=== PATIENT | female | born 1945 | race Caucasian/White ===

== ENCOUNTER → 2016-10-27 | Outpatient (CLI) | payer MEDICARE, BC ==
--- NOTE | 2016-10-27 14:37 | CR ---
EXAMINATION: Right knee HISTORY: Osteoarthritis COMPARISON: 10/29/2015 TECHNIQUE: 3 views FINDINGS/IMPRESSION: Right total knee hardware is demonstrated in stable position and alignment. No acute osseous abnormalities noted. No joint effusion demonstrated.
== END | disposition home or self-care (01) ==
LOC: MW.CHORTHO 08:03
PROVIDERS: ATTEND Orthopaedic Surgery
DX: M17.11 Unilateral primary osteoarthritis, right knee (principal); Z96.651 Presence of right artificial knee joint
CPT/HCPCS: 73562; G0463

== ENCOUNTER 2023-03-16 08:38 | Day surgery (SDC) | payer MEDICARE ==
[~2023-03-16 08:38] MED LIST: Albuterol 0.083% 2.5 MG/3 ML Neb Soln NEB PRN; Bupivacaine 0.5% 30 ML SDV ONE; Bupivacaine 25%/EPINEPHrine/PF 0 ML ONE; Dexmedetomidine 200 MCG/2 ML SDV ONE; HYDROmorphone 1 MG/ML Syringe IVPUSH PRN; Lactated Ringers 1,000 ML IV SCH; Lidocaine 2% 5 ML SDV ONE; Metoclopramide 10 MG/2 ML SDV IVPUSH PRN; Morphine 2 MG/ML SYRINGE IVPUSH PRN; Naloxone 0.4 MG/ML SDV IVPUSH PRN; Ondansetron 4 MG/2 ML SDV IVPUSH PRN; Ondansetron 4 MG/2 ML SDV ONE; Propofol 200 MG/20 ML SDV ONE; Rocuronium Bromide 50 MG/5 ML Syringe ONE; Ropivacaine 0.5% 5 MG/ML 30 ML SDV ONE; Sodium Chloride 0.9% 10 ML Syringe FLUSH PRN; Sodium Chloride 0.9% 2.5 ML Syringe FLUSH PRN; Sodium Chloride 0.9% 20 ML SDV IV PRN; Water For Injection, Sterile 20 ML ONE; ceFAZolin 2 GM in Sodium Chloride 0.9% 50 ML IV ONE; droPERidol 5 MG/2 ML SDV IVPUSH PRN; fentaNYL 100 MCG/2 ML SDV ONE; fentaNYL 50 MCG/ML SDV IVPUSH PRN
[2023-03-16] MEDS ORDERED: propofoL 50 ML ONE (10:32)
[2023-03-16] MEDS ORDERED: ceFAZolin 2 GM Vial ONE (10:38)
[2023-03-16] MEDS ORDERED: Sugammadex Sodium 200 MG/2 ML VIAL ONE (10:50)
[2023-03-16] MEDS ORDERED: Magnesium Sulfate (4.06 MEQ/ML) 5 GM/10 ML SDV ONE (10:51)
[2023-03-16] MEDS ORDERED: Rocuronium Bromide 50 MG/5 ML Syringe ONE (11:08)
[2023-03-16] MEDS ORDERED: Ketorolac 30 MG/ML SDV ONE (11:21)
[2023-03-16] MEDS ORDERED: Acetaminophen/oxyCODONE 325-5 MG Tab PO ONE (13:02)
[2023-03-16] MEDS ORDERED: Acetaminophen/oxyCODONE 325-5 MG Tab ONE (13:05)
[2023-03-16 14:41] VITALS: BP 119/68; PULSE 53
== END 2023-03-16 14:21 | disposition home or self-care (01) ==
LOC: MW.SDS 08:38
PROVIDERS: ATTEND Surgery
DX: K80.10 Calculus of gallbladder with chronic cholecystitis without obstruction (principal); K82.8 Other specified diseases of gallbladder; K42.9 Umbilical hernia without obstruction or gangrene; E78.00 Pure hypercholesterolemia, unspecified; J45.909 Unspecified asthma, uncomplicated; Z88.5 Allergy status to narcotic agent; Z88.8 Allergy status to other drugs, medicaments and biological substances; Z88.2 Allergy status to sulfonamides; Z98.890 Other specified postprocedural states; Z79.899 Other long term (current) drug therapy; Z87.891 Personal history of nicotine dependence; Z68.34 Body mass index [BMI] 34.0-34.9, adult
CPT/HCPCS: 47562; 64486; A9270; J0131; J0690; J1885; J2405; J2704; J2795; J3010; J3475; J3490; J7030; J7120

== ENCOUNTER 2024-07-22 17:04 | Emergency (ER) | payer MEDICARE ==
[2024-07-22 17:42] LABS: BASOPHILS ABSOLUTE AUTO 0.03 K/uL (0.00-0.20); BASOPHILS PERCENT AUTO 0.2 % (0.0-1.0); HEMATOCRIT 44.4 % (37.0-47.0); HEMOGLOBIN 15.7 g/dL (12.0-16.0); IMMATURE GRAN ABSOLUTE AUTO 0.03 K/uL (0.00-0.05); IMMATURE GRAN PERCENT AUTO 0.2 % (0.0-0.4); LYMPHOCYTES ABSOLUTE AUTO 0.52 K/uL (1.00-4.80); LYMPHOCYTES PERCENT AUTO 3.4 % (24.0-44.0); MEAN CORPUSCULAR HEMOGLOBIN 29.9 pg (28.0-32.0); MEAN CORPUSCULAR HGB CONC 35.4 g/dL (32.0-36.0); MEAN CORPUSCULAR VOLUME 84.6 fL (83.0-99.0); MEAN PLATELET VOLUME 10.1 fL (9.4-12.3); MONOCYTES ABSOLUTE AUTO 0.31 K/uL (0.00-0.80); NEUTROPHILS ABSOLUTE AUTO 14.38 K/uL (1.80-7.70); NEUTROPHILS PERCENT AUTO 94.2 % (41.0-71.0); PLATELET COUNT,PLT 274 K/uL (150-400); RED BLOOD CELL COUNT 5.25 M/uL (4.10-5.30); WHITE BLOOD CELL COUNT,WBC 15.27 K/uL (3.9-11.3)
[2024-07-22] MEDS: Sodium Chloride 0.9% 1,000 ML IV ONE ×2 (17:54→19:39)
[2024-07-22 18:07] LABS: A/G RATIO 0.9 (0.9-1.6); ALBUMIN 3.8 g/dL (3.4-5.0); BILIRUBIN TOTAL 0.7 mg/dL (0.2-1.0); CALCIUM 9.9 mg/dL (8.5-10.1); CARBON DIOXIDE,CO2 25.6 mmol/L (21.0-32.0); CREATININE 0.9 mg/dL (0.6-1.0); EST CRCL DRUG DOSING (CG) 41.24 mL/min; MAGNESIUM 1.5 mg/dL (1.8-2.4); POTASSIUM,K 3.4 mmol/L (3.5-5.1); PROTEIN TOTAL,TP 8.1 g/dL (6.4-8.2)
[2024-07-22 18:17] LABS: LACTIC ACID 2.6 mmol/L (0.4-2.0)
[2024-07-22 18:36] LABS: APPEARANCE,URINE CLEAR; BILIRUBIN,URINE NEGATIVE (NEGATIVE); COLOR,URINE YELLOW; GLUCOSE,URINE 250 mg/dL (NEGATIVE); KETONES,URINE NEGATIVE (NEGATIVE); LEUKOCYTE ESTERASE,URINE NEGATIVE (NEGATIVE); NITRITE,URINE NEGATIVE (NEGATIVE); OCCULT BLOOD,URINE NEGATIVE (NEGATIVE); PH,URINE 5.5 (5.0-8.0); PROTEIN,URINE NEGATIVE (NEGATIVE); UROBILINOGEN,URINE 0.2 EU/dL (<2.0)
[2024-07-22] MEDS: Iopamidol 755 MG/ML 500 ML Multipack Bottle IVPUSH ONE (19:29)
[2024-07-22] MEDS: Magnesium Oxide 400 MG Tab PO ONE (21:52)
[2024-07-22] MEDS: Potassium Chloride 20 MEQ Tab.ER PO ONE (21:52)
[2024-07-22 22:27] VITALS: BP 105/69; PULSE 87
== END 2024-07-22 22:27 | disposition home or self-care (01) ==
LOC: MW.ED 17:04
DX: A08.4 Viral intestinal infection, unspecified (principal); I10 Essential (primary) hypertension; E66.9 Obesity, unspecified; Z90.710 Acquired absence of both cervix and uterus; Z79.899 Other long term (current) drug therapy; Z79.2 Long term (current) use of antibiotics; Z88.2 Allergy status to sulfonamides; Z88.5 Allergy status to narcotic agent; Z88.8 Allergy status to other drugs, medicaments and biological substances; Z75.8 Other problems related to medical facilities and other health care; Z68.30 Body mass index [BMI] 30.0-30.9, adult
CPT/HCPCS: 36415; 74177; 80053; 81003; 83605; 83690; 83735; 84484; 85025; 87428; 93005; 96360; 96361; 99285; A9270; J7030; Q9967; 93010